=== PATIENT | female | born 1975 | race Caucasian/White ===

== ENCOUNTER 2019-07-13 18:21 | Inpatient (IN) | payer OTHER ==
[~2019-07-13] VITALS: Ht 154.9 cm; Wt 50.2 kg
[2019-07-13 18:33] LABS: Source, Urine Clean Catch
[2019-07-13 18:38] LABS: Appearance, Urine Cloudy (Clear); Bilirubin, Urine Neg (Neg); Blood, Urine 5+ (Neg); Color, Urine Yellow (P-Yellow); Glucose Qualitative, Urine Neg (Neg); Ketones, Urine Neg (Neg); Leukocyte Esterase, Urine 3+ (Neg); Nitrite, Urine Neg (Neg); Protein, Urine 3+ (Neg); Urobilinogen, Urine NORM (Normal)
[2019-07-13 18:45] LABS: Bacteria Many /hpf; Squamous Epithelial Cells Few /hpf (Few); White Blood Cells, Urine TNTC /hpf (0-5)
[2019-07-13 18:48] LABS: BASOPHILS ABSOLUTE AUTO 0.06 K/mm3 (0.00-0.23); BASOPHILS PERCENT AUTO 0 % (0-2); EOSINOPHILS ABSOLUTE AUTO 0.09 K/mm3 (0.00-0.68); EOSINOPHILS PERCENT AUTO 1 % (0-6); Hematocrit 35.8 % (33.0-51.0); IMMATURE GRAN ABSOLUTE AUTO 0.05 K/mm3 (0.00-0.10); IMMATURE GRAN PERCENT AUTO 0 % (0-1); LYMPHOCYTES ABSOLUTE AUTO 2.13 K/mm3 (0.84-5.20); LYMPHOCYTES PERCENT AUTO 13 % (21-46); MONOCYTES PERCENT AUTO 7 % (4-13); Mean Corpuscular HGB 30.6 pg (26.0-34.0); Mean Corpuscular HGB Conc 33.5 g/dL (31.5-36.5); Mean Corpuscular Volume 91 fL (80-100); Mean Platelet Volume 9.9 fL (9.1-12.4); NEUTROPHILS ABSOLUTE AUTO 12.83 K/mm3 (1.96-9.15); NEUTROPHILS PERCENT AUTO 79 % (41-73); Platelet Count 230 K/mm3 (150-400); RDW Coefficient Variation 13.3 % (11.7-14.2); RDW Standard Deviation 45.1 fL (35.1-46.3); Red Blood Cell Count 3.92 M/mm3 (3.80-5.20); White Blood Cell Count 16.26 K/mm3 (4.00-11.30)
[2019-07-13 19:06] LABS: Anion Gap 5 mmol/L (6-16); Blood Urea Nitrogen 13 mg/dL (8-24); Bun/Creatinine Ratio 20.9 (12.0-20.0); CO2, Blood 25 mmol/L (21-32); Calcium, Blood 8.4 mg/dL (8.5-10.1); Chloride, Blood 104 mmol/L (98-108); Creatinine, Blood 0.62 mg/dL (0.40-1.00); Glomerular Filtration Rate >60 (60-); Glucose, Blood 108 mg/dL (70-99); Potassium, Blood 3.7 mmol/L (3.5-5.5); Sodium, Blood 134 mmol/L (136-145)
[2019-07-14 04:48] LABS: Hematocrit 38.6 % (33.0-51.0); Hemoglobin 12.6 g/dL (11.5-16.0); Mean Corpuscular HGB 30.3 pg (26.0-34.0); Mean Corpuscular HGB Conc 32.6 g/dL (31.5-36.5); Mean Corpuscular Volume 93 fL (80-100); Mean Platelet Volume 10.5 fL (9.1-12.4); Platelet Count 229 K/mm3 (150-400); RDW Coefficient Variation 13.4 % (11.7-14.2); RDW Standard Deviation 45.7 fL (35.1-46.3); Red Blood Cell Count 4.16 M/mm3 (3.80-5.20); White Blood Cell Count 19.72 K/mm3 (4.00-11.30)
[2019-07-14 05:06] LABS: Alanine Aminotransfer (ALT/SGP 68 U/L (12-78); Albumin, Blood 2.7 g/dL (3.4-5.0); Albumin/Globulin Ratio 0.7 (0.8-1.8); Alk Phos 81 U/L (50-136); Anion Gap 6 mmol/L (6-16); Aspartate Aminotrans (AST/SGOT 42 U/L (12-37); Bilirubin, Total 0.6 mg/dL (0.1-1.0); Blood Urea Nitrogen 9 mg/dL (8-24); CO2, Blood 25 mmol/L (21-32); Calcium, Blood 8.1 mg/dL (8.5-10.1); Chloride, Blood 109 mmol/L (98-108); Globulin, Blood 3.8 g/dL (2.2-4.0); Glomerular Filtration Rate >60 (60-); Glucose, Blood 101 mg/dL (70-99); Potassium, Blood 3.9 mmol/L (3.5-5.5); Sodium, Blood 140 mmol/L (136-145); Total Protein, Blood 6.5 g/dL (6.4-8.2)
--- NOTE | 2019-07-14 05:12 | NUR ---
SHIFT SUMMARY PT ER ADMIT THIS SHIFT FOR UTI. PT CAME TO THE FLOOR WITH SEVERE LOWER ABD PAIN FROM UTI. SHE WAS MEDICATED FOR PAIN WITH EFFECT, BP HAS STABLIZED SINCE THAT TIME SINCE BEING MEDICATED FOR PAIN. PT RECEIVED IV ABX IN THE ER AND IS NOW RECEIVING FLUIDS PER EMAR ORDERS. PT AMBULATES INDEPENDENTLY IN THE ROOM. PT S/O AT BEDSIDE T/O THE NIGHT. PT STATES THAT SHE JUST MOVED FROM [facility]. PT AND S/O POSSIBLY HOMELESS. PT IS UNKEMPT.THERE HAVE HAVE BEEN NO ACUTE CHANGES SINCE ADMISSION. ADMISSION COMPLETE. PT A/OX4, PLESANT AND COOPERATIVE WITH CARE. BED IN LOWEST POSITION, CALL LIGHT WITHIN REACH. WILL CONTINUE TO MONITOR AND REPORT TO ONCOMING RN.
[2019-07-14 05:39] LABS: U Amphetamine Screen DETECTED; U Barbituate Screen Not Detected; U Benzodiazapine Screen Not Detected; U Buprenorphine Screen Not Detected; U Cannabinoids Screen DETECTED; U Cocaine Screen Not Detected; U Methadone Screen Not Detected; U Methamphetamine Screen DETECTED; U Opiates Screen Not Detected; U Oxycodone Screen Not Detected; U Phencyclidine Screen Not Detected; U Propoxyphene Screen Not Detected
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
[2019-07-15 05:41] LABS: BASOPHILS ABSOLUTE AUTO 0.03 K/mm3 (0.00-0.23); BASOPHILS PERCENT AUTO 0 % (0-2); EOSINOPHILS ABSOLUTE AUTO 0.14 K/mm3 (0.00-0.68); EOSINOPHILS PERCENT AUTO 1 % (0-6); Hematocrit 39.3 % (33.0-51.0); Hemoglobin 12.8 g/dL (11.5-16.0); IMMATURE GRAN ABSOLUTE AUTO 0.03 K/mm3 (0.00-0.10); IMMATURE GRAN PERCENT AUTO 0 % (0-1); LYMPHOCYTES ABSOLUTE AUTO 1.42 K/mm3 (0.84-5.20); LYMPHOCYTES PERCENT AUTO 13 % (21-46); MONOCYTES ABSOLUTE AUTO 0.98 K/mm3 (0.16-1.47); MONOCYTES PERCENT AUTO 9 % (4-13); Mean Corpuscular HGB 30.4 pg (26.0-34.0); Mean Corpuscular HGB Conc 32.6 g/dL (31.5-36.5); Mean Corpuscular Volume 93 fL (80-100); Mean Platelet Volume 10.7 fL (9.1-12.4); NEUTROPHILS ABSOLUTE AUTO 8.41 K/mm3 (1.96-9.15); NEUTROPHILS PERCENT AUTO 76 % (41-73); Platelet Count 229 K/mm3 (150-400); RDW Coefficient Variation 13.6 % (11.7-14.2); RDW Standard Deviation 46.5 fL (35.1-46.3); Red Blood Cell Count 4.21 M/mm3 (3.80-5.20); White Blood Cell Count 11.01 K/mm3 (4.00-11.30)
[2019-07-15 06:14] LABS: Albumin, Blood 2.6 g/dL (3.4-5.0); Anion Gap 4 mmol/L (6-16); Blood Urea Nitrogen 9 mg/dL (8-24); Bun/Creatinine Ratio 14.8 (12.0-20.0); CO2, Blood 28 mmol/L (21-32); Calcium, Blood 8.4 mg/dL (8.5-10.1); Chloride, Blood 107 mmol/L (98-108); Creatinine, Blood 0.61 mg/dL (0.40-1.00); Glomerular Filtration Rate >60 (60-); Glucose, Blood 90 mg/dL (70-99); Phosphorus, Blood 1.6 mg/dL (2.5-4.9); Potassium, Blood 4.1 mmol/L (3.5-5.5); Sodium, Blood 139 mmol/L (136-145)
--- NOTE | 2019-07-15 06:28 | NUR ---
SHIFT SUMMARY PATIENT ALERT AND ORIENTED. WAS ABLE TO SLEEP WELL MOST OF THE NIGHT. REQUIRED ONE DOSE OF PRN TORADOL FOR HEADACHE. IV PATENT AND FLUSHED. BED IN LOWEST POSITION WITH WHEELS LOCKED CALL LIGHT AND BELONGINGS WITHIN REACH. REPORT GIVEN TO PANTERA KRAUSE.
--- NOTE | 2019-07-15 18:02 | NUR ---
PATIENT HAD BM THIS SHIFT. SHE HAS HAD SOME COMPLAINTS OF LEFT SIDED FLANK PAIN BUT HAS NOT ASKED FOR PAIN MEDS. SHE HAS RESTED MOST OF THE SHIFT. NO ACUTE CHANGES. SHE WAS SHOWERED THIS SHIFT.
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
--- NOTE | 2019-07-16 15:21 | NUR ---
echocardiogram complete
--- NOTE | 2019-07-16 17:39 | NUR ---
Shift Summary A/Ox4, pleasant and cooperative with care. Patient has been outside to smoke x 2 with . Seems less anxious today. No c/o pain, have not had to medicate for this. Denies dysuria. No other concerns at this time.
--- NOTE | 2019-07-17 04:07 | NUR ---
SHIFT SUMMARY PT HAD SOME DISCOMFORT DURING SHIFT. PT TX PER EMAR WITH RELIEF. PT HAD A OUTBURST AT BEGINNING OF SHIFT. PT STATES SHE HAS A UNDIAGNOSED MENTAL DISORDER. PT AND FRIEND WENT OUT TO SMOKE ONCE THIS SHIFT. PT CURRENTLY SLEEPING AND BREATHING EASY. NO OTHER ISSUES NOTED. CALL LIGHT IN REACH.
--- NOTE | 2019-07-17 18:25 | NUR ---
SHIFT SUMMARY- PT A/O PLESANT AND COOPERATIVE. PT IS INDEPENDANT IN THE ROOM. EATING AND DRINKING WELL. PT AND HER HAVE DECIDED TO STAY IN THIS AREA, LINE MAINTENANCE CAME DISCUSSED RESOURCES IN THE AREA. POSSIBLE DISCHARGE TOMORROW PENDING LAB RESULTS.
--- NOTE | 2019-07-18 06:41 | NUR ---
SHIFT SUMMARY PT IS A 43 Y/O FEMALE, ADMITTED FOR SEPSIS AND UTI. SHE IS A&O X 4, AND INDEPENDENT. PT DENIED ANY COMPLAINTS OF PAIN, NAUSEA OR SOB DURING THE NIGHT. VITAL SIGNS STABLE. TELE SHOWED NSR IN THE 70S. PT'S S/O REMAINED IN THE ROOM THROUGH THE NIGHT. NO ACUTE CHANGES IN PT CONDITION NOTED. PER SECURITY REPORT, PT AND HER S/O LEFT THE HOSPITAL CAMPUS AT APPROXIMATELY 2305. THE NURSING PROFESSOR OF EXERCISE SCIENCE WAS NOTIFIED, WHO ADVISED GIVING THE PT AN HOUR BEFORE THEY WERE DISCHARGED AMA. THE PT RETURNED TO HER ROOM APPROXIMATELY 30 MINUTES LATER, AND WAS RE-EDUCATED ON HOSPITAL POLICY ON LEAVING THE HOSPITAL CAMPUS WHILE AN ADMITTED PT. WILL CONTINUE TO MONITOR AND TREAT PER EMAR UNTIL HAND OFF TO DAY SHIFT RN.
[2019-07-18] MEDS ORDERED: ACET325 PO (10:07)
[2019-07-18] MEDS ORDERED: LEVOFLOXACIN750 MG PO (10:07)
--- NOTE | 2019-07-18 12:26 | NUR ---
DISCHARGE INSTRUCTIONS COMPLETED AND DISCUSSED WITH PT EXPRESSING UNDERSTANDING. SERGIO SCRIPT GIVEN TO PT TO [facility] AT [facility]. PT TO [facility] VIA W/C.
== END 2019-07-18 12:00 | disposition home or self-care (01) | DRG 871 ==
LOC: ER 18:21 → MEDS 20:23 → ER 22:45 → MEDS 22:56
PROVIDERS: Family Medicine; Physician Assistant; ADMIT Internal Medicine
DX: A41.51 Sepsis due to Escherichia coli [E. coli] (principal); J18.9 Pneumonia, unspecified organism; N10 Acute pyelonephritis; F17.210 Nicotine dependence, cigarettes, uncomplicated; Z59.0 Homelessness; R82.5 Elevated urine levels of drugs, medicaments and biological substances
CPT/HCPCS: 36415; 74176; 80048; 80053; 80069; 81001; 83605; 85025; 85027; 87040; 87077; 87086; 87186; 93306; 96365; 96375; 99285-25; A9270; J0456; J0696; J1650; J1885; J2405; J3010; J7030; J7050

== ENCOUNTER 2021-04-12 04:25 | Emergency (ER) | payer SELFPAY ==
[~2021-04-12] VITALS: Ht 154.9 cm; Wt 49.0 kg
[~2021-04-12 04:25] MED LIST: ACET325 PO; LEVOFLOXACIN750 MG PO
[2021-04-12] MEDS ORDERED: Cleocin HCl300 MG PO (04:47)
== END 2021-04-12 05:35 | disposition home or self-care (01) ==
LOC: ER 04:25
DX: L03.115 Cellulitis of right lower limb (principal); F17.210 Nicotine dependence, cigarettes, uncomplicated; Z88.1 Allergy status to other antibiotic agents; Z88.2 Allergy status to sulfonamides; Z88.8 Allergy status to other drugs, medicaments and biological substances
CPT/HCPCS: 36415; 83605; 96365; 99283-25